=== PATIENT | male | born 1970 | race Caucasian/White ===

== ENCOUNTER → 2016-07-12 | Outpatient (CLI) | payer BC ==
--- NOTE | 2016-07-12 16:00 | DIAGNOSTIC IMAGING REPORT ---
LEFT WRIST MIN 3 VIEWS ROUTINE CLINICAL HISTORY: M25.539 pain COMPARISON: None. 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 Moderate degenerative change first carpometacarpal joint. No acute bony abnormality. There is no evidence for soft tissue swelling. IMPRESSION: Mild degenerative change. Electronically signed by: Maulik Peraza M.D. 07/12/2016 3:59 PM Dictated Date/Time: 07/12/2016 3:58 PM
== END | disposition home or self-care (01) ==
LOC: C.RAD1850 15:43
PROVIDERS: ATTEND Family Medicine
DX: M25.539 Pain in unspecified wrist (principal)